=== PATIENT | female | born 1945 | race Caucasian/White ===

== ENCOUNTER 2017-06-24 16:10 | Inpatient (IN) ==
[2017-06-24 17:10] LABS: Basophils # 0.1 10*3/uL (0.0-0.2); Basophils % 0.8 % (0.0-0.8); Eosinophils # 0.2 10*3/uL (0.0-0.87); Eosinophils % 2.4 % (0.00-10.9); Immature Granulocytes % 0.8 %; Immature Granulocytes Absolute 0.08 #; Lymphocytes # 2.3 10*3/uL (1.4-4.0); Lymphocytes % 22.6 % (21.3-54.2); Mean Corpuscular HGB Conc 27.2 GM/DL (32-36); Mean Corpuscular Hemoglobin 24 PG (27-34); Mean Corpuscular Volume 88.4 FL (87-102); Mean Platelet Volume 10.8 FL (9.6-12.0); Monocytes # 0.6 10*3/uL (0.11-0.8); Monocytes % 6.2 % (1.7-12.7); NRBC # 0.06 10*3/uL; Neutrophils # 6.8 10*3/uL (1.4-7.4); Neutrophils % 67.2 % (38.7-73.9); Platelet Count 277 T/CUMM (130-400); Red Blood Count 3.45 MC/CUMM (3.8-5.5); Red Cell Distribution Width 31.9 % (9.3-17.3); White Blood Count 10.1 T/CUMM (4-12)
[2017-06-24 17:12] LABS: Hematocrit 30.4 VOL% (35.7-47.0); Hemoglobin 8.4 GM/DL (12.0-16.0)
[2017-06-24 17:41] LABS: Albumin 3.5 G/DL (3.4-5.0); Bilirubin,Total 0.5 MG/DL (0.2-1.0); Calcium 8.8 MG/DL (8.5-10.1); Potassium 3.7 MMOL/L (3.5-5.1); Total Protein 6.8 G/DL (6.4-8.3)
[2017-06-24 20:29] LABS: Apearance,Urine Clear (Clear); Bilirubin,Urine Negative (Negative); Blood, Urine Negative (Negative); Glucose,Urine (UA) Negative (Negative); Ketones,Urine Negative (Negative); Nitrite,Urine Negative (Negative); Protein,Urine Negative; Urine Color Yellow (Yellow)
[2017-06-24 20:43] LABS: Anisocytosis 3+; Macrocytosis 2+; Platelet Estimate Normal; Polychromasia 2+
[2017-06-24 21:05] LABS: ABG Base Excess 1.7 MMOL/L (-2.5-2.5); ABG HCO3 23.6 MMOL/L (20-26); ABG Oxygen Saturation 99.7 % (95-100); ABG PH 7.559 (7.35-7.45); ABG PO2 325.9 MM HG (80-95); ABG TCO2 24.4 MMOL/L (23-27)
[2017-06-24 21:56] LABS: Lactic Acid 2.8 MMOL/L (0.4-2.0)
[2017-06-25 04:23] LABS: ABG Base Excess -0.8 MMOL/L (-2.5-2.5); ABG HCO3 23.8 MMOL/L (20-26); ABG PCO2 22.2 MM HG (35-48); ABG PH 7.572 (7.35-7.45); Allen Test Positive; Pt O2 Delivery Device Ventilator
[2017-06-25 06:20] LABS: Albumin 3.1 G/DL (3.4-5.0); Bilirubin,Total 1.2 MG/DL (0.2-1.0); Calcium 8.7 MG/DL (8.5-10.1); Osmolality,Calculated 284.3 MOS/KG (273-304); Potassium 3.9 MMOL/L (3.5-5.1); Total Protein 6.2 G/DL (6.4-8.3)
[2017-06-25 06:32] LABS: Basophils % 0.3 % (0.0-0.8); Eosinophils % 0.1 % (0.00-10.9); Hematocrit 26.6 VOL% (35.7-47.0); Immature Granulocytes % 0.8 %; Immature Granulocytes Absolute 0.09 #; Lymphocytes % 8.7 % (21.3-54.2); Mean Corpuscular HGB Conc 28.6 GM/DL (32-36); Mean Corpuscular Hemoglobin 24 PG (27-34); Mean Corpuscular Volume 84.2 FL (87-102); Mean Platelet Volume 10.7 FL (9.6-12.0); Monocytes # 0.4 10*3/uL (0.11-0.8); Monocytes % 3.6 % (1.7-12.7); NRBC # 0.04 10*3/uL; Neutrophils # 10.2 10*3/uL (1.4-7.4); Neutrophils % 86.5 % (38.7-73.9); Platelet Count 263 T/CUMM (130-400); Red Blood Count 3.16 MC/CUMM (3.8-5.5); White Blood Count 11.8 T/CUMM (4-12)
[2017-06-25 06:45] LABS: Hemoglobin 7.6 GM/DL (12.0-16.0)
[2017-06-25 06:49] LABS: Anisocytosis 1+; Macrocytosis Slight; Platelet Estimate Normal; Spherocytes 1+
[2017-06-25 20:10] LABS: Hematocrit 27.5 VOL% (35.7-47.0); Hemoglobin 7.5 GM/DL (12.0-16.0)
[2017-06-26 04:06] LABS: ABG Base Excess 0.6 MMOL/L (-2.5-2.5); ABG HCO3 23.2 MMOL/L (20-26); ABG Oxygen Saturation 97.3 % (95-100); ABG PH 7.521 (7.35-7.45); ABG PO2 96.8 MM HG (80-95); ABG TCO2 24.1 MMOL/L (23-27); Allen Test Positive; Pt O2 Delivery Device Ventilator
[2017-06-26 05:43] LABS: Basophils % 0.1 % (0.0-0.8); Hematocrit 25.5 VOL% (35.7-47.0); Hemoglobin 7.3 GM/DL (12.0-16.0); Immature Granulocytes % 0.7 %; Immature Granulocytes Absolute 0.07 #; Lymphocytes # 0.8 10*3/uL (1.4-4.0); Lymphocytes % 7.9 % (21.3-54.2); Mean Corpuscular HGB Conc 28.6 GM/DL (32-36); Mean Corpuscular Hemoglobin 24 PG (27-34); Mean Platelet Volume 10.8 FL (9.6-12.0); Monocytes # 0.5 10*3/uL (0.11-0.8); Monocytes % 5.3 % (1.7-12.7); NRBC # 0.02 10*3/uL; Neutrophils # 8.3 10*3/uL (1.4-7.4); Platelet Count 255 T/CUMM (130-400); White Blood Count 9.7 T/CUMM (4-12)
[2017-06-26 06:01] LABS: Calcium 8.8 MG/DL (8.5-10.1); Osmolality,Calculated 284.5 MOS/KG (273-304); Potassium 3.6 MMOL/L (3.5-5.1)
[2017-06-26 06:03] LABS: Risk Ratio 3.37; VLDL CHOLESTEROL 27.8 MG/DL
[2017-06-26 06:05] LABS: Calcium 8.7 MG/DL (8.5-10.1); Osmolality,Calculated 284.4 MOS/KG (273-304); Potassium 3.6 MMOL/L (3.5-5.1)
[2017-06-26 06:06] LABS: Hypochromasia 1+; Macrocytosis Slight; Ovalocytes Slight; Platelet Estimate Adequate
[2017-06-26 20:57] LABS: Hematocrit 29.5 VOL% (35.7-47.0); Hemoglobin 8.5 GM/DL (12.0-16.0)
[2017-06-27 04:17] LABS: Allen Test Positive; Pt O2 Delivery Device Ventilator
[2017-06-27 04:18] LABS: ABG Base Excess -0.2 MMOL/L (-2.5-2.5); ABG PH 7.474 (7.35-7.45); ABG PO2 87.7 MM HG (80-95)
[2017-06-27 04:45] LABS: Basophils % 0.1 % (0.0-0.8); Eosinophils % 0.1 % (0.00-10.9); Hematocrit 28.1 VOL% (35.7-47.0); Hemoglobin 8.4 GM/DL (12.0-16.0); Immature Granulocytes % 0.5 %; Immature Granulocytes Absolute 0.06 #; Lymphocytes # 0.9 10*3/uL (1.4-4.0); Lymphocytes % 7.5 % (21.3-54.2); Mean Corpuscular HGB Conc 29.9 GM/DL (32-36); Mean Corpuscular Hemoglobin 25 PG (27-34); Mean Corpuscular Volume 84.4 FL (87-102); Mean Platelet Volume 10.8 FL (9.6-12.0); Monocytes % 8.5 % (1.7-12.7); NRBC # 0.03 10*3/uL; Neutrophils # 9.9 10*3/uL (1.4-7.4); Neutrophils % 83.3 % (38.7-73.9); Platelet Count 285 T/CUMM (130-400); Red Blood Count 3.33 MC/CUMM (3.8-5.5); Red Cell Distribution Width 30.5 % (9.3-17.3); White Blood Count 11.9 T/CUMM (4-12)
[2017-06-27 05:13] LABS: Calcium 8.8 MG/DL (8.5-10.1); Osmolality,Calculated 286.5 MOS/KG (273-304); Platelet Estimate Normal; Potassium 3.7 MMOL/L (3.5-5.1)
[2017-06-28 05:07] LABS: ABG Base Excess 4.2 MMOL/L (-2.5-2.5); ABG HCO3 28.2 MMOL/L (20-26); ABG Oxygen Saturation 98.5 % (95-100); ABG PCO2 33.5 MM HG (35-48); ABG PH 7.515 (7.35-7.45); ABG TCO2 24.7 MMOL/L (23-27); Allen Test Positive; Pt O2 Delivery Device Ventilator
[2017-06-28 05:54] LABS: Basophils % 0.1 % (0.0-0.8); Hemoglobin 9.4 GM/DL (12.0-16.0); Immature Granulocytes % 0.9 %; Immature Granulocytes Absolute 0.12 #; Lymphocytes # 0.9 10*3/uL (1.4-4.0); Lymphocytes % 6.7 % (21.3-54.2); Mean Corpuscular HGB Conc 29.4 GM/DL (32-36); Mean Corpuscular Hemoglobin 25 PG (27-34); Mean Corpuscular Volume 84.9 FL (87-102); Mean Platelet Volume 10.7 FL (9.6-12.0); Monocytes # 1.2 10*3/uL (0.11-0.8); NRBC # 0.02 10*3/uL; Neutrophils # 10.6 10*3/uL (1.4-7.4); Neutrophils % 83.3 % (38.7-73.9); Platelet Count 311 T/CUMM (130-400); Red Blood Count 3.77 MC/CUMM (3.8-5.5); Red Cell Distribution Width 29.9 % (9.3-17.3); White Blood Count 12.7 T/CUMM (4-12)
[2017-06-28 06:26] LABS: Calcium 9.1 MG/DL (8.5-10.1); Osmolality,Calculated 290.4 MOS/KG (273-304); Potassium 3.8 MMOL/L (3.5-5.1)
[2017-06-28 06:32] LABS: Anisocytosis 1+; Macrocytosis 1+; Platelet Estimate Normal
[2017-06-29 04:33] LABS: Allen Test Positive; Pt O2 Delivery Device Ventilator
[2017-06-29 04:34] LABS: ABG Base Excess 7.9 MMOL/L (-2.5-2.5); ABG HCO3 31.9 MMOL/L (20-26); ABG Oxygen Saturation 95.4 % (95-100); ABG PCO2 42.3 MM HG (35-48); ABG PH 7.495 (7.35-7.45); ABG PO2 82.1 MM HG (80-95); ABG TCO2 33.2 MMOL/L (23-27)
[2017-06-29 05:38] LABS: Calcium 9.5 MG/DL (8.5-10.1); Osmolality,Calculated 291.3 MOS/KG (273-304); Potassium 4.1 MMOL/L (3.5-5.1)
[2017-06-29 06:24] LABS: Basophils % 0.3 % (0.0-0.8); Eosinophils # 0.1 10*3/uL (0.0-0.87); Eosinophils % 0.5 % (0.00-10.9); Hemoglobin 9.8 GM/DL (12.0-16.0); Immature Granulocytes % 0.7 %; Immature Granulocytes Absolute 0.07 #; Lymphocytes # 1.9 10*3/uL (1.4-4.0); Mean Corpuscular Hemoglobin 25 PG (27-34); Mean Corpuscular Volume 88.6 FL (87-102); Monocytes # 1.4 10*3/uL (0.11-0.8); Monocytes % 12.8 % (1.7-12.7); Neutrophils # 7.1 10*3/uL (1.4-7.4); Neutrophils % 67.7 % (38.7-73.9); Platelet Count 286 T/CUMM (130-400); Red Blood Count 3.95 MC/CUMM (3.8-5.5); Red Cell Distribution Width 29.3 % (9.3-17.3); White Blood Count 10.5 T/CUMM (4-12)
[2017-06-29 06:30] LABS: Hypochromasia 2+; Microcytosis 2+
[2017-06-29 09:27] LABS: ABG Base Excess 6.3 MMOL/L (-2.5-2.5); ABG HCO3 30.2 MMOL/L (20-26); ABG Oxygen Saturation 96.7 % (95-100); ABG PCO2 40.1 MM HG (35-48); ABG PH 7.485 (7.35-7.45); ABG PO2 80.8 MM HG (80-95); ABG TCO2 27.6 MMOL/L (23-27)
[2017-06-30 05:27] LABS: Calcium 9.5 MG/DL (8.5-10.1); Osmolality,Calculated 294.4 MOS/KG (273-304); Potassium 4.1 MMOL/L (3.5-5.1)
[2017-06-30 05:38] LABS: Basophils % 0.3 % (0.0-0.8); Eosinophils % 0.4 % (0.00-10.9); Hematocrit 35.3 VOL% (35.7-47.0); Hemoglobin 10.1 GM/DL (12.0-16.0); Immature Granulocytes % 0.7 %; Immature Granulocytes Absolute 0.08 #; Lymphocytes # 1.6 10*3/uL (1.4-4.0); Lymphocytes % 14.9 % (21.3-54.2); Mean Corpuscular HGB Conc 28.6 GM/DL (32-36); Mean Corpuscular Hemoglobin 25 PG (27-34); Mean Corpuscular Volume 86.3 FL (87-102); Mean Platelet Volume 10.5 FL (9.6-12.0); Monocytes # 1.4 10*3/uL (0.11-0.8); Monocytes % 12.8 % (1.7-12.7); Neutrophils # 7.6 10*3/uL (1.4-7.4); Neutrophils % 70.9 % (38.7-73.9); Platelet Count 368 T/CUMM (130-400); Red Blood Count 4.09 MC/CUMM (3.8-5.5); Red Cell Distribution Width 28.2 % (9.3-17.3); White Blood Count 10.7 T/CUMM (4-12)
[2017-06-30 06:03] LABS: Anisocytosis 2+; Hypochromasia 1+; Microcytosis 2+
[2017-06-30 06:04] LABS: Platelet Estimate Normal
[2017-07-01 05:28] LABS: Calcium 9.9 MG/DL (8.5-10.1); Osmolality,Calculated 293.7 MOS/KG (273-304); Potassium 4.6 MMOL/L (3.5-5.1)
[2017-07-01 05:37] LABS: Basophils % 0.2 % (0.0-0.8); Eosinophils % 0.2 % (0.00-10.9); Hematocrit 33.5 VOL% (35.7-47.0); Hemoglobin 9.6 GM/DL (12.0-16.0); Immature Granulocytes % 0.9 %; Lymphocytes # 1.1 10*3/uL (1.4-4.0); Lymphocytes % 10.2 % (21.3-54.2); Mean Corpuscular HGB Conc 28.7 GM/DL (32-36); Mean Corpuscular Hemoglobin 25 PG (27-34); Mean Corpuscular Volume 86.1 FL (87-102); Mean Platelet Volume 11.1 FL (9.6-12.0); Monocytes # 0.7 10*3/uL (0.11-0.8); Monocytes % 6.9 % (1.7-12.7); NRBC # 0.02 10*3/uL; Neutrophils # 8.6 10*3/uL (1.4-7.4); Neutrophils % 81.6 % (38.7-73.9); Platelet Count 379 T/CUMM (130-400); Red Blood Count 3.89 MC/CUMM (3.8-5.5); Red Cell Distribution Width 27.2 % (9.3-17.3); White Blood Count 10.6 T/CUMM (4-12)
[2017-07-01 06:10] LABS: Hypochromasia 1+; Microcytosis 2+; Ovalocytes Slight
[2017-07-01 06:11] LABS: Platelet Estimate Normal
[2017-07-02 06:44] LABS: Calcium 10.6 MG/DL (8.5-10.1); Osmolality,Calculated 296.4 MOS/KG (273-304); Potassium 3.7 MMOL/L (3.5-5.1)
[2017-07-02 08:04] LABS: Basophils % 0.2 % (0.0-0.8); Eosinophils # 0.1 10*3/uL (0.0-0.87); Eosinophils % 1.1 % (0.00-10.9); Immature Granulocytes % 0.9 %; Immature Granulocytes Absolute 0.12 #; Lymphocytes # 1.4 10*3/uL (1.4-4.0); Lymphocytes % 11.1 % (21.3-54.2); Mean Corpuscular HGB Conc 27.8 GM/DL (32-36); Mean Corpuscular Hemoglobin 25 PG (27-34); Mean Corpuscular Volume 88.5 FL (87-102); Mean Platelet Volume 10.9 FL (9.6-12.0); Monocytes # 1.3 10*3/uL (0.11-0.8); Neutrophils # 9.7 10*3/uL (1.4-7.4); Neutrophils % 76.7 % (38.7-73.9); Platelet Count 411 T/CUMM (130-400); Red Blood Count 4.07 MC/CUMM (3.8-5.5); Red Cell Distribution Width 27.5 % (9.3-17.3); White Blood Count 12.7 T/CUMM (4-12)
[2017-07-02 08:21] LABS: Hypochromasia 1+; Ovalocytes Slight; Platelet Estimate Adequate
[2017-07-02 08:22] LABS: Microcytosis 1+
[2017-07-03 05:53] LABS: Basophils # 0.1 10*3/uL (0.0-0.2); Basophils % 0.7 % (0.0-0.8); Eosinophils # 0.3 10*3/uL (0.0-0.87); Eosinophils % 2.9 % (0.00-10.9); Hematocrit 30.7 VOL% (35.7-47.0); Immature Granulocytes % 1.3 %; Immature Granulocytes Absolute 0.15 #; Lymphocytes # 3.7 10*3/uL (1.4-4.0); Lymphocytes % 31.2 % (21.3-54.2); Mean Corpuscular HGB Conc 29.3 GM/DL (32-36); Mean Corpuscular Hemoglobin 25 PG (27-34); Mean Corpuscular Volume 85.8 FL (87-102); Mean Platelet Volume 10.5 FL (9.6-12.0); Monocytes # 1.4 10*3/uL (0.11-0.8); Monocytes % 11.6 % (1.7-12.7); Neutrophils # 6.1 10*3/uL (1.4-7.4); Neutrophils % 52.3 % (38.7-73.9); Platelet Count 415 T/CUMM (130-400); Red Blood Count 3.58 MC/CUMM (3.8-5.5); Red Cell Distribution Width 26.8 % (9.3-17.3); White Blood Count 11.7 T/CUMM (4-12)
[2017-07-03 06:21] LABS: Giant Platelets Few; Hypochromasia 1+; Microcytosis 1+; Ovalocytes Slight; Platelet Estimate Adequate
[2017-07-03 06:46] LABS: Calcium 9.9 MG/DL (8.5-10.1); Osmolality,Calculated 286.7 MOS/KG (273-304); Potassium 3.3 MMOL/L (3.5-5.1)
[2017-07-03 15:55] VITALS: BP 111/53
== END 2017-07-03 16:46 | disposition home health service (06) | DRG 207 ==
LOC: N.ED 16:10 → N.EDINP 19:35 → N.ICU 06-25 02:27 → N.TELES 07-01 13:50
PROVIDERS: ADMIT Family Medicine; ATTEND Family Medicine

== ENCOUNTER 2021-04-27 05:42 | Inpatient (IN) ==
[2021-04-27] MEDS ORDERED: FUROSEMIDE 40 MG/4 ML VIAL IV STA (06:03)
[2021-04-27] MEDS ORDERED: NITROGLYCERIN 2% OINT 1 INCH/GM PACK TOP STA (06:04)
[2021-04-27] MEDS ORDERED: FUROSEMIDE 100 MG/10 ML VIAL ONE (06:05)
[2021-04-27 06:10] LABS: Basophils # 0.1 10*3/uL (0.0-0.2); Basophils % 0.6 % (0.0-0.8); Eosinophils # 0.2 10*3/uL (0.0-0.87); Eosinophils % 1.8 % (0.00-10.9); Hemoglobin 14.1 GM/DL (12.0-16.0); Immature Granulocytes % 0.5 %; Immature Granulocytes Absolute 0.05 #; Lymphocytes # 2.7 10*3/uL (1.4-4.0); Mean Corpuscular HGB Conc 30.3 GM/DL (32-36); Mean Corpuscular Volume 97.3 FL (87-102); Mean Platelet Volume 10.5 FL (9.6-12.0); Monocytes % 6.8 % (1.7-12.7); Neutrophils % 63.3 % (38.7-73.9); Platelet Count 217 T/CUMM (130-400); Red Blood Count 4.78 MC/CUMM (3.8-5.5); Red Cell Distribution Width 15.4 % (9.3-17.3); White Blood Count 10.1 T/CUMM (4-12)
[2021-04-27] MEDS ORDERED: DILTIAZEM 100 MG VIAL.ADD IV ONE (06:12)
[2021-04-27 06:14] LABS: Hematocrit 46.5 VOL% (35.7-47.0)
[2021-04-27] MEDS: DILTIAZEM INJ 100 MG in SODIUM CHLORIDE 0.9% 100 ML IV SCH ×2 (06:17→14:05)
[2021-04-27 06:22] LABS: Albumin 3.7 G/DL (3.4-5.0); Bilirubin,Total 1.2 MG/DL (0.20-1.00); Calcium 9.2 MG/DL (8.5-10.1); Osmolality,Calculated 282.4 MOS/KG (273-304); Total Protein 7.6 G/DL (6.4-8.2)
[2021-04-27] MEDS ORDERED: NITROGLYCERIN DRIP 50 MG/250 ML BOTTLE IV SCH (07:00)
[2021-04-27] MEDS ORDERED: DILTIAZEM 50 MG/10 ML VIAL IV STA (07:22)
[2021-04-27] MEDS ORDERED: DILTIAZEM 25 MG/5 ML VIAL IV ONE (07:23)
[2021-04-27] MEDS ORDERED: GLUCAGON 1 MG VIAL IM PRN (09:27)
[2021-04-27] MEDS ORDERED: hydrALAZINE 20 MG/1 ML VIAL IV PRN (09:27)
[2021-04-27] MEDS ORDERED: MORPHINE 2 MG/1 ML SYRINGE IV PRN (09:27)
[2021-04-27] MEDS ORDERED: DEXTROSE 10% 25 GM/250 ML BAG IV PRN (09:27)
[2021-04-27] MEDS ORDERED: ONDANSETRON 4 MG/2 ML VIAL IV PRN (09:27)
[2021-04-27] MEDS ORDERED: ACETAMINOPHEN 325 MG TABLET PO PRN (09:27)
[2021-04-27] MEDS ORDERED: ENOXAPARIN 40 MG/0.4 ML SYRINGE SUBCUT SCH (09:30)
[2021-04-27] MEDS: INSULIN LISPRO 100 UNIT/ML SUBCUT SCH ×3 (11:36→22:06)
[2021-04-27] MEDS ORDERED: ENOXAPARIN 40 MG/0.4 ML SYRINGE SUBCUT STA (12:15)
[2021-04-27] MEDS ORDERED: MELATONIN 3 MG TABLET PO PRN (12:57)
[2021-04-27] MEDS ORDERED: diphenhydrAMINE CAP 25 MG CAPSULE PO STA (13:02)
[2021-04-27] MEDS ORDERED: diphenhydrAMINE CAP 25 MG CAPSULE PO PRN (13:31)
[2021-04-27] MEDS: cefTRIAXone 1,000 MG in SODIUM CHLORIDE 0.9% 100 ML IV SCH (13:52)
[2021-04-27] MEDS: methylPREDNISolone SOD SUC 40 MG/1 ML VIAL IV SCH (14:15)
[2021-04-27] MEDS: AZITHROMYCIN INJ 500 MG in SODIUM CHLORIDE 0.9% 250 ML IV SCH (17:00)
[2021-04-27] MEDS ORDERED: MORPHINE 4 MG/1 ML VIAL ONE (20:24)
[2021-04-27] MEDS: APIXABAN 5 MG TABLET PO SCH (22:06)
[2021-04-27] MEDS: FAMOTIDINE 20 MG TABLET PO SCH (22:06)
[2021-04-27] MEDS: GABAPENTIN 300 MG CAPSULE PO SCH (22:06)
[2021-04-27] MEDS: CALCIUM (CARBONATE)/VITAMIN D 600 MG-400 UNIT TABLET PO SCH (22:06)
[2021-04-28] MEDS: DILTIAZEM INJ 100 MG in SODIUM CHLORIDE 0.9% 100 ML IV SCH ×2 (00:29→06:11)
[2021-04-28] MEDS: methylPREDNISolone SOD SUC 40 MG/1 ML VIAL IV SCH (01:09)
[2021-04-28 05:00] LABS: Basophils % 0.2 % (0.0-0.8); Hematocrit 41.2 VOL% (35.7-47.0); Hemoglobin 12.6 GM/DL (12.0-16.0); Immature Granulocytes % 0.6 %; Immature Granulocytes Absolute 0.03 #; Lymphocytes # 0.7 10*3/uL (1.4-4.0); Lymphocytes % 13.2 % (21.3-54.2); Mean Corpuscular HGB Conc 30.6 GM/DL (32-36); Mean Corpuscular Volume 97.6 FL (87-102); Mean Platelet Volume 10.7 FL (9.6-12.0); Monocytes % 2.6 % (1.7-12.7); Neutrophils % 83.4 % (38.7-73.9); Platelet Count 157 T/CUMM (130-400); Red Blood Count 4.22 MC/CUMM (3.8-5.5); White Blood Count 4.9 T/CUMM (4-12)
[2021-04-28 05:46] LABS: Calcium 8.9 MG/DL (8.5-10.1); Osmolality,Calculated 287.3 MOS/KG (273-304); Potassium 4.2 MMOL/L (3.5-5.1); Risk Ratio 2.02; VLDL Cholesterol 12.4 MG/DL
[2021-04-28] MEDS: LEVOTHYROXINE 75 MCG TABLET PO SCH (06:05)
[2021-04-28] MEDS ORDERED: METOPROLOL SUCCINATE XL 100 MG TABLET PO SCH (09:00)
[2021-04-28] MEDS ORDERED: FUROSEMIDE 40 MG/4 ML VIAL IV SCH (09:00)
[2021-04-28] MEDS ORDERED: PANTOPRAZOLE 40 MG TABLET PO SCH (09:00)
[2021-04-28] MEDS: INSULIN LISPRO 100 UNIT/ML SUBCUT SCH ×4 (09:05→21:09)
[2021-04-28] MEDS: MULTIVITAMIN (CENTRUM) TABLET PO SCH (09:06)
[2021-04-28] MEDS: ASPIRIN EC 81 MG TABLET PO SCH (09:06)
[2021-04-28] MEDS: FAMOTIDINE 20 MG TABLET PO SCH ×2 (09:06→21:10)
[2021-04-28] MEDS: APIXABAN 5 MG TABLET PO SCH ×2 (09:06→21:10)
[2021-04-28] MEDS: CETIRIZINE 10 MG TABLET PO SCH (09:06)
[2021-04-28] MEDS: ROSUVASTATIN 20 MG TABLET PO SCH (09:06)
[2021-04-28] MEDS: ZINC GLUCONATE 50 MG TABLET PO SCH (09:06)
[2021-04-28] MEDS: SOTALOL 80 MG TABLET PO SCH ×2 (09:06→21:09)
[2021-04-28] MEDS: amLODIPine 10 MG TABLET PO SCH (09:07)
[2021-04-28] MEDS: ASCORBIC ACID 500 MG TABLET PO SCH (09:07)
[2021-04-28] MEDS: FERROUS SULFATE 325 MG TABLET PO SCH (09:07)
[2021-04-28] MEDS: FLUoxetine 20 MG CAPSULE PO SCH (09:07)
[2021-04-28] MEDS: FOLIC ACID 1 MG TABLET PO SCH (09:07)
[2021-04-28] MEDS: CALCIUM (CARBONATE)/VITAMIN D 600 MG-400 UNIT TABLET PO SCH ×2 (09:07→21:09)
[2021-04-28] MEDS: cefTRIAXone 1,000 MG in SODIUM CHLORIDE 0.9% 100 ML IV SCH (12:55)
[2021-04-28] MEDS: AZITHROMYCIN INJ 500 MG in SODIUM CHLORIDE 0.9% 250 ML IV SCH (14:02)
[2021-04-28] MEDS: GABAPENTIN 300 MG CAPSULE PO SCH (21:09)
[2021-04-29] MEDS: LEVOTHYROXINE 75 MCG TABLET PO SCH (06:03)
[2021-04-29] MEDS: DILTIAZEM INJ 100 MG in SODIUM CHLORIDE 0.9% 100 ML IV SCH (06:03)
[2021-04-29] MEDS ORDERED: predniSONE 20 MG TABLET PO SCH (09:00)
[2021-04-29] MEDS: CALCIUM (CARBONATE)/VITAMIN D 600 MG-400 UNIT TABLET PO SCH (09:34)
[2021-04-29] MEDS: ASPIRIN EC 81 MG TABLET PO SCH (09:34)
[2021-04-29] MEDS: ASCORBIC ACID 500 MG TABLET PO SCH (09:34)
[2021-04-29] MEDS: FOLIC ACID 1 MG TABLET PO SCH (09:34)
[2021-04-29] MEDS: FERROUS SULFATE 325 MG TABLET PO SCH (09:34)
[2021-04-29] MEDS: FAMOTIDINE 20 MG TABLET PO SCH (09:34)
[2021-04-29] MEDS: FLUoxetine 20 MG CAPSULE PO SCH (09:34)
[2021-04-29] MEDS: CETIRIZINE 10 MG TABLET PO SCH (09:34)
[2021-04-29] MEDS: amLODIPine 10 MG TABLET PO SCH (09:35)
[2021-04-29] MEDS: ROSUVASTATIN 20 MG TABLET PO SCH (09:35)
[2021-04-29] MEDS: APIXABAN 5 MG TABLET PO SCH (09:35)
[2021-04-29] MEDS: MULTIVITAMIN (CENTRUM) TABLET PO SCH (09:35)
[2021-04-29] MEDS: ZINC GLUCONATE 50 MG TABLET PO SCH (09:35)
[2021-04-29] MEDS: SOTALOL 80 MG TABLET PO SCH (09:35)
[2021-04-29] MEDS: INSULIN LISPRO 100 UNIT/ML SUBCUT SCH ×2 (09:47→13:48)
[2021-04-29 13:28] VITALS: BP 120/75
[2021-04-29] MEDS: cefTRIAXone 1,000 MG in SODIUM CHLORIDE 0.9% 100 ML IV SCH (14:45)
[2021-04-29] MEDS: AZITHROMYCIN INJ 500 MG in SODIUM CHLORIDE 0.9% 250 ML IV SCH (14:46)
== END 2021-04-29 15:24 | disposition home or self-care (01) | DRG 308 ==
LOC: N.ED 05:42 → N.EDINP 09:27 → SUATTDRO 09:27 → N.TELEN 21:05
PROVIDERS: ADMIT Internal Medicine; ATTEND Emergency Medicine